=== PATIENT | female | born 1970 | race Two or more races ===

== ENCOUNTER 2022-01-29 11:10 | Emergency (ER) | payer OTHER ==
[~2022-01-29] VITALS: Ht 165.1 cm; Wt 79.4 kg
[2022-01-29 11:16] VITALS: BP 125/48
[2022-01-29 12:16] LABS: Basophils # (auto) 0 10 ^3/uL (0-0.2); Basophils % (auto) 0.5 % (0.0-2.0); Eosinophils # (auto) 0.2 10 ^3/uL (0-0.8); Eosinophils % (auto) 2.6 % (0.0-7.0); Hematocrit 27.7 % (36.0-46.0); Hemoglobin 9.3 g/dL (12.2-16.2); Lymphocytes # (auto) 1.5 10 ^3/uL (0.4-5.4); Lymphocytes % (auto) 21.8 % (10.0-50.0); Mean Corpuscular Hemoglobin 29.2 pg (28.0-32.0); Mean Corpuscular Hgb Conc. 33.7 g/dL (32.0-36.0); Mean Corpuscular Volume 86.5 fL (80.0-100.0); Monocytes # (auto) 0.5 10 ^3/uL (0-1.3); Monocytes % (auto) 6.9 % (0.0-12.0); Neutrophils # (auto) 4.8 10 ^3/uL (1.6-8.6); Neutrophils % (auto) 68.2 % (37.0-80.0); Red Cell Distribution Width 13.1 % (11.8-14.3)
[2022-01-29 12:26] LABS: Urine Bacteria NONE SEEN /hpf (None Seen); Urine Blood 3+ /uL (Negative); Urine Specific Gravity 1.014 (1.001-1.035); Urine WBC 16 /hpf (0 - 5)
[2022-01-29 12:30] LABS: INR 1.03 (0.9-1.15)
[2022-01-29 12:36] LABS: Albumin 3.4 g/dL (3.4-5.0); Calcium 8.3 mg/dL (8.5-10.1); Potassium 3.8 mmol/L (3.5-5.1)
[2022-01-29 12:39] LABS: BUN/Creatinine Ratio 21.3; Bilirubin, Total 0.4 mg/dL (0.2-1.0); Total Protein 7.1 g/dL (6.4-8.2)
[2022-01-29] MEDS ORDERED: NAPR500T31 PO (14:58)
[2022-01-29] MEDS ORDERED: FER325T PO (14:58)
== END 2022-01-29 15:03 | disposition home or self-care (01) ==
LOC: ER 11:10
DX: D64.9 Anemia, unspecified (principal); N83.201 Unspecified ovarian cyst, right side; Z32.02 Encounter for pregnancy test, result negative
CPT/HCPCS: 36415; 76856; 80053; 81001; 81025; 85025; 85610

== ENCOUNTER 2025-04-17 12:58 | Emergency (ER) | payer MEDICAID, OTHER ==
[~2025-04-17] VITALS: Ht 165.1 cm; Wt 79.7 kg
[~2025-04-17 12:58] MED LIST: FER325T PO; NAPR-746 PO
--- NOTE | 2025-04-17 13:33 | ED.PDOC ---
HPI Comments 54y F who presents to the ED for chief complaint of chest pain. Pt states she has been having chest pain with associated shortness of breath since earlier this AM. Pt states she feels like she is feeling short of breath due to inability to get air and out of her lungs and it is causing pain in her throat and trouble getting air out. Pt states her chest pain is center of chest, non- radiating, rating the pain 5/10, with noted increased pain during inspiration. Pt otherwise denies any recent sick contacts or associated fall or injury. Pt in no noted respiratory distress at this time. Pt denies any other symptoms. Chief Complaint: Shortness of Breath Time Seen by MD: 13:31 Primary Care Provider: KEVEN DALLAS Reviewed Notes: Medications, Allergies Allergies: Coded Allergies: NO KNOWN ALLERGIES (Unverified , 04/17/25) Home Meds Active Scripts Ferrous Sulfate (FERROUS SULFATE) 325 Mg Tb, 1 TAB PO DAILY, #30 TAB 0 Refills Prov:IVANNA LOPEZ 01/29/22 Naproxen (Naproxen) 500 Mg Tab, 500 MG PO BID, #30 TAB Prov:IVANNA LOPEZ 01/29/22 Information Source: Patient Mode of Arrival: Ambulatory Brought in by: self Severity: Moderate Timing: Hours Duration: Since onset Prehospital treatment: None Location: Chest (R) Radiation: No Radiation Quality: Pressure Onset: At Rest Cardiac Risk Factors: None PE Risk Factors: None History of: None Modifying Factors: Other (inspiration) Associated Signs and Symptoms: SOB Past Medical History PAST MEDICAL HISTORY: Denies 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, 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 History: Denies all 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 Hx Family History Family History: Reviewed,noncontributory to illness Social History Smoker: Non-Smoker Alcohol: Occasionally Drugs: Denies Drug Use Lives In: Home Constitutional: denies: chills, diaphoresis, fatigue, fever, malaise, sweats, weakness, others EENTM: denies: blurred vision, double vision, ear bleeding, ear discharge, ear drainage, ear pain, ear ringing, eye pain, eye redness, hearing loss, mouth pain, mouth swelling, nasal discharge, nose bleeding, nose congestion, nose pain, photophobia, tearing, throat pain, throat swelling, voice changes, others Respiratory: reports: shortness of breath; denies: cough, hemoptysis, orthopnea, SOB at rest, SOB with excertion, stridor, wheezing, others Cardiovascular: reports: chest pain; denies: dizzy spells, diaphoresis, Dyspnea on exertion, edema, irregular heart beat, left arm pain, lightheadedness, palpitations, PND, syncope, others Gastrointestinal: denies: abdomen distended, abdominal pain, blood streaked bowels, constipated, diarrhea, dysphagia, difficulty swallowing, hematemesis, melena, nausea, poor appetite, poor fluid intake, rectal bleeding, rectal pain, vomiting, others Genitourinary: denies: abnormal vagina bleeding, burning, dyspareunia, dysuria, flank pain, frequency, hematuria, incontinence, pain, , vagina discharge, urgency, others Neurological: denies: dizziness, fainting, headache, left sided numbness, left sided weakness, numbness, paresthesia, pre-existing deficit, right sided numbness, right sided weakness, seizure, speech problems, tingling, tremors, weakness, others Musculoskeletal: denies: back pain, gout, joint pain, joint swelling, muscle pain, muscle stiffness, neck pain, others Integumetry: denies: bruises, change in color, change in hair/nails, dryness, laceration, lesions, lumps, rash, wounds, others Allergic/Immunocompromised: denies: Difficulty Healing, Frequent Infections, Hives, Itching, others Hematologic/Lymphatic: denies: anemia, blood clots, easy bleeding, easy bruising, swollen glands, others Endocrine: denies: excessive hunger, excessive sweating, excessive thirst, excessive urination, flushing, intolerance to cold, intolerance to heat, unexplained weight gain, unexplained weight loss, others Psychiatric: denies: anxiety, bipolar disorder, depression, hopeless, panic disorder, schizophrenia, sleepless, suicidal, others All Other Systems: Reviewed and Negative Physical Exam General Appearance: Moderate Distress HEENT: Normal ENT Inspection, Pharynx Normal, TMs Normal Neck: Full Range of Motion, Non-Tender, Normal, Normal Inspection Respiratory: Chest Non-Tender, Lungs Clear, No Accessory Muscle Use, No Respiratory Distress, Normal Breath Sounds Cardiovascular: No Edema, No JVD, No Murmur, No Gallop, Normal Peripheral Pulses, Regular Rate/Rhythm Breast Exam: Deferred Gastrointestinal: No Organomegaly, Non Tender, No Pulsatile Mass, Normal Bowel Sounds, Soft Genitalia: Deferred Pelvic: Deferred Rectal: Deferred Extremities: No calf tenderness, Normal capillary refill, Normal inspection, Normal range of motion, Non-tender, No pedal edema Musculoskeletal : Apperance: Normal 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 Was a procedure done?: No CP Differential Dx Differential Diagnosis: A-fib, A-Flutter, Angina, Anxiety / Panic Attack, Atrial Dysrhythmia, Electrolyte Disorder, Pulmonary Embolus, Sinus Tachycardia Differential Diagnosis: Chest Wall Pain, Pericarditis X-Ray, Labs, Meds, VS Vital Signs Date Time Temp Pulse Resp B/P (MAP) Pulse Ox O2 Delivery O2 Flow Rate FiO2 04/17/25 13:59 98.3 76 16 113/68 (83) 100 98.3 04/17/25 13:59 76 16 100 Room Air 04/17/25 13:33 80 04/17/25 13:23 80 04/17/25 13:17 18 96 Room Air* 0 21 04/17/25 13:17 97.8 86 18 104/68 (80) 96 97.8 Lab Test 04/17/25 14:26 04/17/25 13:35 04/17/25 13:25 Range/Units Troponin I High Sensitivity 22 23 </=34 ng/L White Blood Count 6.1 4.4-10.8 10^3/uL Red Blood Count 4.27 4.0-5.20 10^6/uL Hemoglobin 12.8 12.2-16.2 g/dL Hematocrit 37.3 36.0-46.0 % Mean Corpuscular Volume 87.3 80.0-100.0 fL Mean Corpuscular Hemoglobin 29.9 28.0-32.0 pg Mean Corpuscular Hemoglobin Concent 34.2 32.0-36.0 g/dL Red Cell Distribution Width 13.8 11.8-14.3 % Platelet Count 228 140-450 10^3/uL Mean Platelet Volume 8.5 6.9-10.8 fL Neutrophils (%) (Auto) 64.3 37.0-80.0 % Lymphocytes (%) (Auto) 27.1 10.0-50.0 % Monocytes (%) (Auto) 6.9 0.0-12.0 % Eosinophils (%) (Auto) 1.3 0.0-7.0 % Basophils (%) (Auto) 0.4 0.0-2.0 % Neutrophils # (Auto) 3.9 1.6-8.6 10 ^3/uL Lymphocytes # (Auto) 1.7 0.4-5.4 10 ^3/uL Monocytes # (Auto) 0.4 0-1.3 10 ^3/uL Eosinophils # (Auto) 0.1 0-0.8 10 ^3/uL Basophils # (Auto) 0 0-0.2 10 ^3/uL Nucleated Red Blood Cells 0.2 % D-Dimer, Quantitative < 0.19 0.0-0.49 mg/L FEU Sodium Level 141 136-145 mmol/L Potassium Level 4.0 3.5-5.1 mmol/L Chloride Level 105 98-107 mmol/L Carbon Dioxide Level 27 20-31 mmol/L Anion Gap 9 5-15 Blood Urea Nitrogen 15 9-23 mg/dL Creatinine 0.73 0.550-1.02 mg/dL Glomerular Filtration Rate Calc 96 >90 mL/min BUN/Creatinine Ratio 20.5 H 10.0-20.0 Serum Glucose 93 74-106 mg/dL Calcium Level 10.3 8.7-10.4 mg/dL Urine Color Light-yellow Yellow Urine Clarity Clear Clear Urine pH 6.5 5.0-9.0 Urine Specific [place] 1.011 1.001-1.035 Urine Protein Negative Negative Urine Ketones Negative Negative Urine Blood Negative Negative /uL Urine Nitrite Negative Negative Urine Bilirubin Negative Negative Urine Urobilinogen Normal Negative mg/dL Urine Leukocyte Esterase Negative Negative /uL Urine RBC 1 0 - 4 /hpf Urine Microscopic WBC < 1 0-5 /HPF Urine Squamous Epithelial Cells Few <5 /hpf Urine Bacteria None seen None Seen /hpf Urine Glucose Normal Normal mg/dL Current Medications Medications (Trade) Dose Ordered Sig/Brandon Route Start Time Stop Time Status Last Admin Aspirin 162 mg ONCE ONCE PO 04/17/25 13:30 04/17/25 13:31 DC 04/17/25 14:04 EXAM: XY CHEST TWO VIEWS ROUTINE IMPRESSION: No acute intrathoracic process. The patient's urine test is negative for any infection The CBC is within normal limits The chemistry panel is within normal limits The patient was given aspirin 162 mg by mouth for the chest pain The troponin level x2 is negative The patient's D-dimer is negative At this time, the patient will be admitted with a diagnosis of acute chest pain Images Reviewed?: Images reviewed and evaluated by me Time of 1ST Reevaluation: 14:00 Reevaluation 1ST: Unchanged Patient Education/Counseling: Diagnosis, Treatment, Prognosis Family Education/Counseling: No Family Present SEPSIS Sepsis Screen Physician Orders Chest Two Views Routine (04/17/25 13:16) Heplock Iv (04/17/25 13:16) Hostage Negotiator (04/17/25 13:16) Blood Pressure (04/17/25 13:16) Pulse Oximetry (04/17/25 13:16) Electrocardigram (04/17/25 13:16) Troponin-I Hs (04/17/25 16:16) Electrocardigram (04/17/25 14:16) Electrocardigram (04/17/25 16:16) Vital Signs Date Time Temp Pulse Resp B/P (MAP) Pulse Ox O2 Delivery O2 Flow Rate FiO2 04/17/25 13:59 98.3 76 16 113/68 (83) 100 98.3 04/17/25 13:59 76 16 100 Room Air 04/17/25 13:33 80 04/17/25 13:23 80 04/17/25 13:17 18 96 Room Air* 0 21 04/17/25 13:17 97.8 86 18 104/68 (80) 96 97.8 Laboratory Tests Test 04/17/25 13:35 White Blood Count 6.1 10^3/uL (4.4-10.8) Medications Medications Dose Ordered Sig/Brandon Route Start Time Stop Time Status Last Admin Dose Admin Aspirin 162 mg ONCE ONCE PO 04/17/25 13:30 04/17/25 13:31 DC 04/17/25 14:04 Departure 1 Departure Time of Disposition: 15:41 Impression: Primary Impression: Acute chest pain Additional Impression: Acute myocardial ischemia Disposition: 09 ADMITTED INPATIENT Admit to: [facility] Condition: Fair Critical Care Note Critical Care Time?: Yes (55 min-critical care time only) Stability Stability form required: Yes Unstable for transfer: Telemetry monitoring (Telemetry monitoring required), ED Physician Assesment (Clinical assesment) Heart Score Heart Score: Heart Score Response (Comments) Value History Slightly Suspicious 0 EKG Repolarization Disturb 1 Age 45-64 1 Risk Factors No known risk factors 0 Troponin Normal limit 0 Total 2 I personally scribed for ANTHONY RODRIGUEZ MD ([email or web address]) on 04/17/25 at 13:33. Electronically submitted by Adrian Doshi ([email or web address]). I personally scribed for ANTHONY RODRIGUEZ MD ([email or web address]) on 04/17/25 at 14:55. Electronically submitted by Adrian Doshi ([email or web address]). ANTHONY RODRIGUEZ MD Apr 17, 2025 13:33
[2025-04-17 13:44] LABS: Hematocrit 37.3 % (36.0-46.0); Hemoglobin 12.8 g/dL (12.2-16.2); Mean Corpuscular Hemoglobin 29.9 pg (28.0-32.0); Mean Corpuscular Volume 87.3 fL (80.0-100.0); Nucleated Red Blood Cells % 0.2 %
[2025-04-17 13:56] LABS: Chloride 105 mmol/L (98-107); Potassium 4.0 mmol/L (3.5-5.1); Sodium 141 mmol/L (136-145)
[2025-04-17 13:57] LABS: Anion Gap 9 (5-15); Calcium 10.3 mg/dL (8.7-10.4); Carbon Dioxide 27 mmol/L (20-31)
[2025-04-17 13:59] VITALS: BP 113/68; PULSE 76; RESP 16; TEMP 98.3; O2SAT 100
[2025-04-17 14:02] LABS: BUN/Creatinine Ratio 20.5 (10.0-20.0); Blood Urea Nitrogen 15 mg/dL (9-23); Glucose 93 mg/dL (74-106)
[2025-04-17 14:03] LABS: Urine Protein, UAD Negative (Negative)
--- NOTE | 2025-04-17 14:03 | DVH ---
EXAM: XY CHEST TWO VIEWS ROUTINE HISTORY: cp COMPARISON: None TECHNIQUE: Frontal and lateral views of the chest were performed. FINDINGS: No pneumothorax, pulmonary edema, pleural effusions, or consolidative infiltrates. The heart is not enlarged. No fractures are identified about the bony thorax. IMPRESSION: No acute intrathoracic process.
--- NOTE | 2025-04-17 19:27 | ECG ---
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
--- NOTE | 2025-04-17 19:27 | ECG ---
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
== END 2025-04-17 18:54 | disposition left against medical advice (07) ==
LOC: ER 12:58
DX: I25.9 Chronic ischemic heart disease, unspecified (principal); Z98.51 Tubal ligation status; Z98.890 Other specified postprocedural states
CPT/HCPCS: 36415; 71046; 80048; 81001; 84484; 85025; 85379; 93005; 99291